=== PATIENT | female | born 1965 | race Caucasian/White ===

== ENCOUNTER 2017-11-04 16:45 | Emergency (ER) | payer SELFPAY ==
[~2017-11-04] VITALS: Ht 160 cm; Wt 60.0 kg
[2017-11-04] MEDS ORDERED: ACETAMINOPHEN 325MG TABLET PO ONE (17:00)
[2017-11-04 17:50] LABS: CLARITY URINE CLEAR (CLEAR); COLOR URINE YELLOW (YELLOW); KETONES URINE NEGATIVE (NEGATIVE); LEUKOCYTE ESTERASE URINE 3+ (NEGATIVE); NITRITE URINE NEGATIVE (NEGATIVE); OCCULT BLOOD URINE TRACE (NEGATIVE); PROTEIN URINE NEGATIVE (NEGATIVE); SPECIFIC GRAVITY URINE 1.008 (1.005-1.030); UROBILINOGEN URINE 0.2 E.U./dL (0.2-1.0)
[2017-11-04 18:13] LABS: HEMATOCRIT. 37.3 % (36.0-48.0); HEMOGLOBIN. 12.5 g/dL (12.0-16.0); MEAN CORPUSCULAR HEMOGLOBIN 29.9 pg (28.0-32.0); MEAN CORPUSCULAR VOLUME 88.9 fL (81.0-99.0); MEAN PLATELET VOLUME 7.1 fl (7.4-10.4); PLATELET 352 x1000/uL (130-400); RED BLOOD CELL COUNT 4.19 mill/uL (4.2-5.4); RED CELL DISTRIBUTION WIDTH 16.3 % (11.6-14.6)
[2017-11-04 18:16] LABS: CHLORIDE 101 mEq/L (98-107)
[2017-11-04 18:21] LABS: PROTHROMBIN TIME 10.7 sec (9.4-11.6)
[2017-11-04 19:04] LABS: PLATELET ESTIMATE NORMAL
[2017-11-05] MEDS: ACETAMINOPHEN 325MG TABLET PO SCH ×2 (00:10→03:43)
[2017-11-05 00:20] VITALS: BP 95/60
== END 2017-11-05 02:51 | disposition home or self-care (01) ==
LOC: ER 16:45
DX: N39.0 Urinary tract infection, site not specified (principal); F12.10 Cannabis abuse, uncomplicated; F14.10 Cocaine abuse, uncomplicated
CPT/HCPCS: 36415; 71045; 80053; 81003; 81025; 83605; 85025; 85610; 87040; 87077; 87086; 87186; 87804; 93005; 99285; Z7610